=== PATIENT | female | born 1990 | race Caucasian/White ===

== ENCOUNTER 2020-07-08 12:40 | Emergency (ER) | payer OTHER ==
[2020-07-08] MEDS ORDERED: Sodium Chloride 0.9% 1,000 ML ONE (13:09)
[2020-07-08] MEDS ORDERED: Morphine 4 MG/ML VIAL ONE (13:09)
== END 2020-07-08 14:15 | disposition home or self-care (01) ==
LOC: MADERS 12:40
DX: O9A.211 Injury, poisoning and certain other consequences of external causes complicating pregnancy, first trimester (principal); S80.12XA Contusion of left lower leg, initial encounter; S80.11XA Contusion of right lower leg, initial encounter; O99.511 Diseases of the respiratory system complicating pregnancy, first trimester; J45.909 Unspecified asthma, uncomplicated; O99.891 Other specified diseases and conditions complicating pregnancy; R00.0 Tachycardia, unspecified; Z3A.09 9 weeks gestation of pregnancy; Y04.0XXA Assault by unarmed brawl or fight, initial encounter
CPT/HCPCS: 96374; J2270; J7050

== ENCOUNTER 2020-09-26 14:07 | Emergency (ER) | payer OTHER | END 2020-09-26 15:44 | disposition short-term general hospital (02) | LOC: MADERS 14:07 | DX: O9A.212 Injury, poisoning and certain other consequences of external causes complicating pregnancy, second trimester (principal); S80.212A Abrasion, left knee, initial encounter; O30.002 Twin pregnancy, unspecified number of placenta and unspecified number of amniotic sacs, second trimester; O99.891 Other specified diseases and conditions complicating pregnancy; R14.0 Abdominal distension (gaseous) | CPT/HCPCS: 99284 ==